=== PATIENT | female | born 1935 | race Caucasian/White ===

== ENCOUNTER 2016-12-20 18:29 | Emergency (ER) | payer MEDICAID ==
[~2016-12-20] VITALS: Ht 149.9 cm; Wt 63.5 kg
[~2016-12-20 18:29] MED LIST: AMLO-511 PO; ASPI-1093 PO; LOSA50TA37 PO; MELO-273 PO; METF500T4 PO
[2016-12-20] MEDS ORDERED: ATOR10TA69 PO (18:45)
[2016-12-20] MEDS ORDERED: LOSA25TA21 PO (18:45)
[2016-12-20] MEDS ORDERED: PANT20TA12 PO (18:45)
[2016-12-20] MEDS ORDERED: AMLO2.5T29 PO (18:45)
[2016-12-20] MEDS ORDERED: GLIP5TAB11 PO (18:45)
[2016-12-20 18:52] LABS: GLUCOSE,POINT OF CARE 201 MG/DL (70-110)
[2016-12-20 19:20] LABS: BASOPHILS % (AUTO) 0.3 % (0.0-2.0); HEMATOCRIT 30.3 % (36-46); HEMOGLOBIN 10.2 g/dL (12.0-16.0); LYMPHOCYTES # (AUTO) 3.2 K/uL (1.0-4.8); LYMPHOCYTES % (AUTO) 26.3 % (22.0-44.0); MEAN CORPUSCULAR HEMOGLOBIN 30.7 pg (26.0-34.0); MEAN CORPUSCULAR HGB CONC 33.8 G/dL (31.0-37.0); MEAN CORPUSCULAR VOLUME 91 fL (80-100); MONOCYTES # (AUTO) 0.6 K/uL (0.1-1.0); MONOCYTES % (AUTO) 5.2 % (2.0-9.0); NEUTROPHILS # (AUTO) 5.2 K/uL (1.8-7.7); NEUTROPHILS % (AUTO) 42.5 % (40.0-70.0); PLATELET COUNT (AUTO) 230 K/uL (150-450); RED BLOOD CELL COUNT(AUTO) 3.33 MIL/uL (4.00-5.20); RED CELL DISTRIBUTION WIDTH 13.3 % (11.5-14.5); WHITE BLOOD COUNT (AUTO) 12.3 K/uL (4.5-11.0)
[2016-12-20 19:29] LABS: EOSINOPHILS % (AUTO) 25.7 % (1.0-6.0)
[2016-12-20 19:30] LABS: PROTHROMBIN TIME 10.2 SEC (9.4-11.6)
[2016-12-20 19:43] LABS: ANION GAP 7 mmol/L (8-16); CALCIUM, TOTAL 8.8 mg/dL (8.8-10.5); CARBON DIOXIDE 25 mmol/L (22-29); CHLORIDE 102 mmol/L (98-107); CREATININE 0.98 mg/dL (0.60-1.30); GLOMERULAR FILTR. RATE CALC 55 mL/min (>60); POTASSIUM 4.4 mmol/L (3.5-5.1); SODIUM SERUM 134 mmol/L (136-145); UREA NITROGEN, BLOOD 27 mg/dL (7-18)
[2016-12-20 19:44] LABS: APPEARANCE,URINE CLOUDY (CLEAR); GLUCOSE, URINE (UA) NEGATIVE (NEGATIVE); KETONES,URINE NEGATIVE (NEGATIVE); LEUKOCYTE ESTERASE ,URINE MODERATE (NEGATIVE); OCCULT BLOOD,URINE NEGATIVE (NEGATIVE); PH,URINE 5.5 (5.0-8.0); PROTEIN,URINE NEGATIVE (NEGATIVE)
[2016-12-20 19:49] LABS: ALANINE AMINOTRANSFERASE 14 U/L (12-78); ALBUMIN 3.4 g/dL (3.4-5.0); ASPARTATE AMINOTRANSFERASE 12 U/L (15-37); BILIRUBIN,TOTAL 0.3 mg/dL (0.1-1.0); CREATINE KINASE, TOTAL 32 U/L (26-192); TOTAL PROTEIN, SERUM 7.1 g/dL (6.4-8.2)
[2016-12-20 19:53] LABS: ADD UA MICROSCOPIC YES
[2016-12-20 19:54] LABS: SQUAMOUS EPITHELIAL CELL,UR Few /LPF (None Seen); WBC,URINE 26-50 /HPF (0-5)
[2016-12-20 19:55] LABS: RBC,URINE 0-2 /HPF (0-2)
[2016-12-20 20:24] VITALS: BP 126/67
== END 2016-12-20 21:32 | disposition home or self-care (01) ==
LOC: EMS 18:30
DX: E11.649 Type 2 diabetes mellitus with hypoglycemia without coma (principal); N39.0 Urinary tract infection, site not specified; I10 Essential (primary) hypertension
CPT/HCPCS: 82962; 87086; 93005; 99285

== ENCOUNTER 2017-05-17 19:17 | Inpatient (IN) | payer MEDICAID ==
[~2017-05-17] VITALS: Ht 152.4 cm; Wt 65.5 kg
[~2017-05-17 19:17] MED LIST changes: -AMLO-511 PO; +AMLO2.5T29 PO; -ASPI-1093 PO; +ASPI-1182 PO; +ATOR10TA69 PO; +GLIP5TAB11 PO; +LOSA25TA21 PO; -LOSA50TA37 PO; -MELO-273 PO; +PANT20TA12 PO
[2017-05-17 19:32] LABS: GLUCOSE,POINT OF CARE 313 MG/DL (70-110)
[2017-05-17] MEDS ORDERED: SODIUM CHLORIDE 0.9% 1,000 ML IV ONE (20:30)
[2017-05-17 20:31] LABS: BASOPHILS % (AUTO) 0.4 % (0.0-2.0); EOSINOPHILS % (AUTO) 0.5 % (1.0-6.0); HEMATOCRIT 36.4 % (36-46); HEMOGLOBIN 12.4 g/dL (12.0-16.0); LYMPHOCYTES # (AUTO) 0.6 K/uL (1.0-4.8); LYMPHOCYTES % (AUTO) 7.8 % (22.0-44.0); MEAN CORPUSCULAR HEMOGLOBIN 31.4 pg (26.0-34.0); MEAN CORPUSCULAR HGB CONC 33.9 G/dL (31.0-37.0); MEAN CORPUSCULAR VOLUME 93 fL (80-100); MONOCYTES # (AUTO) 0.7 K/uL (0.1-1.0); MONOCYTES % (AUTO) 8.1 % (2.0-9.0); NEUTROPHILS # (AUTO) 6.9 K/uL (1.8-7.7); NEUTROPHILS % (AUTO) 83.2 % (40.0-70.0); PLATELET COUNT (AUTO) 236 K/uL (150-450); RED BLOOD CELL COUNT(AUTO) 3.94 MIL/uL (4.00-5.20); RED CELL DISTRIBUTION WIDTH 12.6 % (11.5-14.5); WHITE BLOOD COUNT (AUTO) 8.3 K/uL (4.5-11.0)
[2017-05-17] MEDS ORDERED: ONDANSETRON HCL 4 MG/2 ML VIAL IVP ONE (20:45)
[2017-05-17] MEDS ORDERED: DONNATAL/LIDOCAINE/MAALOX 55 ML BOTTLE PO ONE (20:45)
[2017-05-17 20:55] LABS: ANION GAP 12 mmol/L (8-16); CALCIUM, TOTAL 9.2 mg/dL (8.8-10.5); CARBON DIOXIDE 26 mmol/L (22-29); CHLORIDE 98 mmol/L (98-107); CREATININE 0.85 mg/dL (0.60-1.30); GLOMERULAR FILTR. RATE CALC > 60 mL/min (>60); POTASSIUM 4.2 mmol/L (3.5-5.1); SODIUM SERUM 136 mmol/L (136-145); UREA NITROGEN, BLOOD 17 mg/dL (7-18)
[2017-05-17 21:06] LABS: ALANINE AMINOTRANSFERASE 708 U/L (12-78); ALBUMIN 4.1 g/dL (3.4-5.0); BILIRUBIN,TOTAL 1.7 mg/dL (0.1-1.0); TOTAL PROTEIN, SERUM 7.8 g/dL (6.4-8.2)
[2017-05-17 21:07] LABS: ASPARTATE AMINOTRANSFERASE 1129 U/L (15-37)
[2017-05-17 22:22] LABS: GLUCOSE, URINE (UA) >=1000 mg/dL (NEGATIVE); KETONES,URINE NEGATIVE (NEGATIVE); LEUKOCYTE ESTERASE ,URINE NEGATIVE (NEGATIVE); OCCULT BLOOD,URINE NEGATIVE (NEGATIVE); PH,URINE 7.5 (5.0-8.0); PROTEIN,URINE NEGATIVE (NEGATIVE)
[2017-05-17 22:27] LABS: ADD UA MICROSCOPIC YES; APPEARANCE,URINE CLEAR (CLEAR)
[2017-05-17 22:29] LABS: RBC,URINE None Seen /HPF (0-2); WBC,URINE None Seen /HPF (0-5)
[2017-05-17 22:42] LABS: GLUCOSE,POINT OF CARE 298 MG/DL (70-110)
[2017-05-17] MEDS ORDERED: MORPHINE SULFATE 2 MG/ML SYRINGE IVP ONE (22:45)
[2017-05-18] VITALS (7 sets, daily range): BP systolic 122–138; BP diastolic 57–71
[2017-05-18] MEDS ORDERED: LOSARTAN POTASSIUM 25 MG TABLET PO SCH ×2 (03:00→21:00)
[2017-05-18] MEDS ORDERED: DOCUSATE SODIUM 100 MG CAPSULE PO SCH ×2 (03:00→21:00)
[2017-05-18] MEDS ORDERED: ONDANSETRON HCL 4 MG/2 ML VIAL IVP PRN (03:00)
[2017-05-18] MEDS ORDERED: 0.9% SODIUM CHLORIDE 10 ML SYRINGE IVP PRN (03:00)
[2017-05-18] MEDS ORDERED: OxyCODONE HCL/ACETAMINOPHEN 5-325 MG TABLET PO PRN ×2 (03:00)
[2017-05-18] MEDS ORDERED: DEXTROSE 50%-WATER 25 GM/50 ML SYRINGE IVP PRN (06:30)
[2017-05-18] MEDS: INSULIN ASPART 100 UNITS/ML SQ PRN (06:33)
[2017-05-18 07:35] LABS: ALBUMIN 3.1 g/dL (3.4-5.0); BILIRUBIN,TOTAL 2.9 mg/dL (0.1-1.0); CALCIUM, TOTAL 8.4 mg/dL (8.8-10.5); CREATININE 1.04 mg/dL (0.60-1.30); POTASSIUM 3.9 mmol/L (3.5-5.1); TOTAL PROTEIN, SERUM 6.3 g/dL (6.4-8.2)
[2017-05-18 07:48] LABS: GLUCOSE,POINT OF CARE 222 MG/DL (70-110)
[2017-05-18] MEDS: PANTOPRAZOLE SODIUM 40 MG/VIAL IVP SCH (08:45)
[2017-05-18] MEDS: LOSARTAN POTASSIUM 25 MG TABLET PO SCH ×2 (08:55→19:40)
[2017-05-18] MEDS: ASPIRIN 81 MG EC TABLET PO SCH (08:55)
[2017-05-18] MEDS: DOCUSATE SODIUM 100 MG CAPSULE PO SCH ×2 (08:55→19:40)
[2017-05-18] MEDS: AmLODIPine BESYLATE 2.5 MG TABLET PO SCH (08:56)
[2017-05-18] MEDS: ATORVASTATIN CALCIUM 10 MG TABLET PO SCH (08:56)
[2017-05-18 11:52] LABS: GLUCOSE,POINT OF CARE 110 MG/DL (70-110)
[2017-05-18] MEDS: DEXTROSE 5%-0.9% SODIUM CHL 1,000 ML IV SCH (15:25)
[2017-05-18 17:22] LABS: GLUCOSE,POINT OF CARE 128 MG/DL (70-110)
[2017-05-18 20:32] LABS: GLUCOSE,POINT OF CARE 133 MG/DL (70-110)
[2017-05-19] MEDS: DEXTROSE 5%-0.9% SODIUM CHL 1,000 ML IV SCH (03:27)
[2017-05-19 04:38] VITALS: BP 119/46
[2017-05-19 05:59] LABS: BASOPHILS % (AUTO) 0.2 % (0.0-2.0); EOSINOPHILS % (AUTO) 3.6 % (1.0-6.0); HEMATOCRIT 29.8 % (36-46); HEMOGLOBIN 10.2 g/dL (12.0-16.0); LYMPHOCYTES % (AUTO) 16.7 % (22.0-44.0); MEAN CORPUSCULAR HEMOGLOBIN 31.9 pg (26.0-34.0); MEAN CORPUSCULAR HGB CONC 34.3 G/dL (31.0-37.0); MEAN CORPUSCULAR VOLUME 93 fL (80-100); MONOCYTES # (AUTO) 0.6 K/uL (0.1-1.0); MONOCYTES % (AUTO) 10.1 % (2.0-9.0); NEUTROPHILS # (AUTO) 4.2 K/uL (1.8-7.7); NEUTROPHILS % (AUTO) 69.4 % (40.0-70.0); PLATELET COUNT (AUTO) 151 K/uL (150-450); RED BLOOD CELL COUNT(AUTO) 3.21 MIL/uL (4.00-5.20); RED CELL DISTRIBUTION WIDTH 12.8 % (11.5-14.5)
[2017-05-19 06:22] LABS: GLUCOSE,POINT OF CARE 179 MG/DL (70-110)
[2017-05-19 07:49] VITALS: BP 140/70
[2017-05-19] MEDS: DOCUSATE SODIUM 100 MG CAPSULE PO SCH ×2 (08:13→20:09)
[2017-05-19] MEDS: LOSARTAN POTASSIUM 25 MG TABLET PO SCH ×2 (08:13→20:09)
[2017-05-19] MEDS: ATORVASTATIN CALCIUM 10 MG TABLET PO SCH (08:14)
[2017-05-19] MEDS: ASPIRIN 81 MG EC TABLET PO SCH (08:14)
[2017-05-19] MEDS: AmLODIPine BESYLATE 2.5 MG TABLET PO SCH (08:14)
[2017-05-19 09:08] LABS: HEPATITIS Bs ANTIGEN SCREEN P Negative (Negative); HEPATITIS C AB SCREEN <0.1 s/co ratio (0.0-0.9)
[2017-05-19] MEDS: PANTOPRAZOLE SODIUM 40 MG/VIAL IVP SCH (09:38)
[2017-05-19 11:45] VITALS: BP 138/70
[2017-05-19] MEDS: INSULIN ASPART 100 UNITS/ML SQ PRN ×3 (12:17→21:27)
[2017-05-19 13:59] LABS: BASOPHILS % (AUTO) 0.2 % (0.0-2.0); EOSINOPHILS % (AUTO) 4.1 % (1.0-6.0); HEMATOCRIT 30.8 % (36-46); HEMOGLOBIN 10.6 g/dL (12.0-16.0); LYMPHOCYTES % (AUTO) 20.1 % (22.0-44.0); MEAN CORPUSCULAR HEMOGLOBIN 31.6 pg (26.0-34.0); MEAN CORPUSCULAR HGB CONC 34.4 G/dL (31.0-37.0); MEAN CORPUSCULAR VOLUME 92 fL (80-100); MONOCYTES # (AUTO) 0.4 K/uL (0.1-1.0); MONOCYTES % (AUTO) 8.8 % (2.0-9.0); NEUTROPHILS # (AUTO) 3.3 K/uL (1.8-7.7); NEUTROPHILS % (AUTO) 66.8 % (40.0-70.0); PLATELET COUNT (AUTO) 175 K/uL (150-450); RED BLOOD CELL COUNT(AUTO) 3.35 MIL/uL (4.00-5.20)
[2017-05-19 14:16] LABS: CALCIUM, TOTAL 8.3 mg/dL (8.8-10.5); CREATININE 0.93 mg/dL (0.60-1.30); POTASSIUM 3.5 mmol/L (3.5-5.1)
[2017-05-19 14:22] LABS: ALBUMIN 2.8 g/dL (3.4-5.0); BILIRUBIN,TOTAL 3.5 mg/dL (0.1-1.0); TOTAL PROTEIN, SERUM 6.3 g/dL (6.4-8.2)
[2017-05-19 16:33] VITALS: BP 145/75
[2017-05-19 16:57] LABS: GLUCOSE,POINT OF CARE 185 MG/DL (70-110)
[2017-05-19 16:57] LABS: GLUCOSE,POINT OF CARE 193 MG/DL (70-110)
[2017-05-19 21:32] VITALS: BP 137/80
[2017-05-19 22:07] LABS: GLUCOSE,POINT OF CARE 167 MG/DL (70-110)
[2017-05-19 23:37] VITALS: BP 139/70
[2017-05-20 03:41] VITALS: BP 138/61
[2017-05-20 04:52] LABS: GLUCOSE,POINT OF CARE 88 MG/DL (70-110)
[2017-05-20 07:27] LABS: GLUCOSE,POINT OF CARE 134 MG/DL (70-110)
[2017-05-20 07:55] VITALS: BP 146/63
[2017-05-20] MEDS: ATORVASTATIN CALCIUM 10 MG TABLET PO SCH (08:49)
[2017-05-20] MEDS: DOCUSATE SODIUM 100 MG CAPSULE PO SCH (08:49)
[2017-05-20] MEDS: ASPIRIN 81 MG EC TABLET PO SCH (08:49)
[2017-05-20] MEDS: PANTOPRAZOLE SODIUM 40 MG/VIAL IVP SCH (08:49)
[2017-05-20] MEDS: LOSARTAN POTASSIUM 25 MG TABLET PO SCH (08:49)
[2017-05-20] MEDS: AmLODIPine BESYLATE 2.5 MG TABLET PO SCH (08:51)
[2017-05-20 11:35] VITALS: BP 132/68
[2017-05-20] MEDS: INSULIN ASPART 100 UNITS/ML SQ PRN ×2 (12:35→17:49)
[2017-05-20 15:46] LABS: GLUCOSE,POINT OF CARE 207 MG/DL (70-110)
[2017-05-20 16:07] VITALS: BP 140/70
[2017-05-20 17:40] LABS: CALCIUM, TOTAL 8.9 mg/dL (8.8-10.5); CREATININE 0.9 mg/dL (0.60-1.30); POTASSIUM 3.3 mmol/L (3.5-5.1)
[2017-05-20 17:45] LABS: BILIRUBIN,TOTAL 2.7 mg/dL (0.1-1.0); TOTAL PROTEIN, SERUM 6.8 g/dL (6.4-8.2)
[2017-05-20 18:42] LABS: GLUCOSE,POINT OF CARE 195 MG/DL (70-110)
== END 2017-05-20 19:45 | disposition home health service (06) | DRG 241 ==
LOC: EMS 19:19 → 4E 23:00
PROVIDERS: ADMIT Internal Medicine; ATTEND Internal Medicine
DX: K29.70 Gastritis, unspecified, without bleeding (principal); E44.0 Moderate protein-calorie malnutrition; E11.9 Type 2 diabetes mellitus without complications; D64.9 Anemia, unspecified; I10 Essential (primary) hypertension; I44.7 Left bundle-branch block, unspecified; R10.9 Unspecified abdominal pain; E78.00 Pure hypercholesterolemia, unspecified; Z90.49 Acquired absence of other specified parts of digestive tract
CPT/HCPCS: 76700; 80074; 82948; 82962; 93005; 96361; 96374; 96375; 99285; C9113; J2270; J2405; J7042